=== PATIENT | female | born 1990 | race Two or more races ===

== ENCOUNTER → 2021-12-11 | Outpatient (CLI) | payer OTHER ==
--- NOTE | 2021-12-11 16:24 | RAD ---
EXAM: Pelvis sonogram. HISTORY: Pelvic pain. TECHNIQUE: Transabdominal and transvaginal sonographic imaging of the pelvis was performed. COMPARISON: None. FINDINGS: The uterus measures 11.0 x 5.2 x 4.4 cm. The endometrial stripe measures 9 mm thickness. Th ere is a large complicated right ovarian cyst measuring 5.6 x 4.2 x 3.9 cm, likely hemorrhagic in isaiah ology. There is a 3.8 x 3.4 x 2.7 cm simple right adnexal cyst, likely paraovarian in etiology. There are multiple left ovarian follicles, several which are in a peripheral distribution. This is not lemuel magan within limits to suggest polycystic ovary syndrome. There is normal blood flow within both ovari es. There is no pelvic free fluid. IMPRESSION: 1. 5.6 cm suspected hemorrhagic right ovarian cyst and 3.8 cm simple right paraovarian cyst. Follow-u p can be performed to confirm resolution. 2. Normal endometrial stripe for the premenopausal status of the patient. Electronically signed by: Sridevi Santiago MD (12/11/2021 4:22 PM) [id number]
== END ==
LOC: US 15:35
PROVIDERS: ATTEND Physician Assistant Medical
DX: N83.291 Other ovarian cyst, right side (principal); Z87.42 Personal history of other diseases of the female genital tract
CPT/HCPCS: 76830; 76856

== ENCOUNTER → 2022-02-26 | Outpatient (CLI) | payer OTHER ==
--- NOTE | 2022-02-26 14:50 | RAD ---
Ultrasound pelvis complete and transvaginal ultrasound pelvis HISTORY: Polycystic ovaries and right hemorrhagic ovarian cyst Sonographic examination of the pelvis was performed by transabdominal and endovaginal technique[facility]. COMPARISON: December 11, 2021 Ultrasound pelvis complete: The uterus measures 9.8 x 5.3 x 4.1 cm. The right ovary seen with normal blood flow and measures 4.9 x 3.0 x 3.7 cm. The left ovary is seen with normal blood flow measures 4.0 x 3.6 x 2.3 cm. Transvaginal ultrasound pelvis: The endometrium appears normal and measures 5.4 mm in thickness. The left ovary appears normal howeve r there is a parapelvic cyst on the left that measures 3 x 3 x 2 cm. The right ovary contains a large septated cyst that measures 6.2 x 1.9 x 2.9 cm. Impression: Markedly improved study with the complex cyst which was on the right completely resolved and a anecho ic septated cyst remaining. Electronically signed by: Blaise Reid III, MD (02/26/2022 2:48 PM) [facility]
== END ==
LOC: US 10:02
PROVIDERS: ATTEND Obstetrics & Gynecology
DX: Z09 Encounter for follow-up examination after completed treatment for conditions other than malignant neoplasm (principal); N83.201 Unspecified ovarian cyst, right side
CPT/HCPCS: 76830; 76856